=== PATIENT | male | born 1985 | race Asian ===

== ENCOUNTER 2019-04-14 12:14 | Emergency (ER) | payer MEDICAID, SELFPAY ==
[~2019-04-14] VITALS: Ht 182.9 cm; Wt 76.4 kg
[2019-04-14] MEDS ORDERED: PROPOFOL 10 MG/ML, 20ML ONE (13:57)
--- NOTE | 2019-04-14 13:58 | NUR ---
TASK RN: PT MOVED TO [facility] FROM [facility]. PT AWARE OF POC FOR PROCEDURAL SEDATION. PT SET UP FOR PROCEDURAL SEDATION. CONSENT SIGNED AND PLACED ON CHART. PIV INITIATED. MONITORS APPLIED.
[2019-04-14] MEDS ORDERED: PROPOFOL 10 MG/ML, 100ML IV ONE (14:00)
[2019-04-14] MEDS ORDERED: SODIUM CHLORIDE FLUSH 10ML SYR IVF ONE (14:00)
[2019-04-14] MEDS ORDERED: HYDROcodone/APAP 5/325 TABLET ONE (14:39)
--- NOTE | 2019-04-14 14:43 | NUR ---
TASK RN: TIME OUT FOR CLOSED REDUCTION LEFT SHOULDER PERFORMED AT 1410. PT MED NOTED AND SHOULDER REDUCED BY DR SORIANO. PT TOLLERATED WELL. SHOULDER IMMOBILIZER IN PLACE, DISTAL CSM+, VSS. PT C/O PAIN 07/02, MED NOTED FOR PAIN.
--- NOTE | 2019-04-14 14:49 | NUR ---
LATE ENTRY FOR 1400, SBAR RPT REC'D FROM [facility] EM[facility] AND ASSUMED PT CARE.
[2019-04-14] MEDS ORDERED: HYDROcodone/APAP 5/325 TABLET PO ONE (15:00)
[2019-04-14 15:27] VITALS: BP 131/82
--- NOTE | 2019-04-14 15:39 | NUR ---
Patient/Caregiver given discharge instructions and they have confirmed that they understand the instructions. Patient ambulatory with steady gait. Patient home with friend, Alma Rosa.
== END 2019-04-14 16:19 | disposition home or self-care (01) ==
LOC: ED 15:30
DX: S43.005A Unspecified dislocation of left shoulder joint, initial encounter (principal); X58.XXXA Exposure to other specified factors, initial encounter; Y93.89 Activity, other specified; Y92.488 Other paved roadways as the place of occurrence of the external cause; Y99.8 Other external cause status
CPT/HCPCS: 23650; 73030; 99285; J2704

== ENCOUNTER 2020-06-08 10:18 | Emergency (ER) | payer MEDICAID ==
[~2020-06-08] VITALS: Ht 182.9 cm; Wt 82.0 kg
--- NOTE | 2020-06-08 10:30 | NUR ---
PT BIB [facility]. PT STARTED EXPERIENCING N/V/ABD PAIN AND SEVERE CHILLS AND BODY ACHES AT 0800 THIS MORNING. PT STATED THAT HE HAS NEVER FELT LIKE THIS BEFORE AND THAT HIS "WHOLE BODY HURTS." PT DOES NOT HAVE FEVER. PT DENIES ANY DIARRHEA, SOB OR CP.
[2020-06-08] MEDS ORDERED: HALOPERIDOL 5 MG/ML ONE (10:39)
[2020-06-08] MEDS ORDERED: ONDANSETRON 2MG/ML, 2ML ONE (10:39)
[2020-06-08] MEDS ORDERED: DIPHENHYDRAMINE 50 MG/ML, 1ML ONE (10:39)
[2020-06-08] MEDS ORDERED: SODIUM CHLORIDE FLUSH 10ML SYR IVF ONE (11:00)
[2020-06-08] MEDS ORDERED: DIPHENHYDRAMINE 50 MG/ML, 1ML IVPush ONE (11:00)
[2020-06-08] MEDS ORDERED: ONDANSETRON 2MG/ML, 2ML IVPush ONE (11:00)
[2020-06-08] MEDS ORDERED: SODIUM CHLORIDE 0.9% 1,000ML IVBOLUS ONE (11:00)
[2020-06-08] MEDS ORDERED: HALOPERIDOL 5 MG/ML IV ONE (11:00)
[2020-06-08 11:03] LABS: BASOPHILS % (AUTO) 0 % (0-1); EOSINOPHILS % (AUTO) 1 % (1-7); LYMPHOCYTES % (AUTO) 12 % (22-44); MEAN PLATELET VOLUME 8.7 fL (7.4-10.4); MONOCYTES % (AUTO) 4 % (2-9); NEUTROPHILS % (AUTO) 82 % (42-75); PLATELET COUNT 225 x10^3/uL (130-400); RED BLOOD COUNT 4.89 x10^6/uL (4.38-5.82); RED CELL DISTRIBUTION WIDTH 12.8 % (9.4-14.8)
[2020-06-08 11:04] LABS: MD NO
[2020-06-08 11:14] LABS: CHLORIDE 110 mmol/L (98-107)
[2020-06-08 11:15] LABS: ALANINE AMINOTRANSFERASE 36 U/L (12-78); ALBUMIN 3.9 g/dL (3.4-5.0); ANION GAP 8 mmol/L (5-15); CALCIUM 8.6 mg/dL (8.5-10.1); CREATININE 1.03 mg/dL (0.7-1.3)
--- NOTE | 2020-06-08 11:15 | NUR ---
PT RESTING COMFORTABLY. PT NO LONGER VOMITING. PT DROWSY AFTER MEDICATIONS, PLACED ON 2L NC.
[2020-06-08 11:17] LABS: ALKALINE PHOSPHATASE 71 U/L (45-117); TOTAL PROTEIN 6.9 g/dL (6.4-8.2)
[2020-06-08 12:07] LABS: MICROSCOPIC NOT IND
--- NOTE | 2020-06-08 12:16 | NUR ---
PT GIVEN CUP OF WATER FOR PO CHALLENGE
--- NOTE | 2020-06-08 13:05 | NUR ---
PT STILL TOO DROWSY FOR DISCHARGE. PT TOLERATING BEING OFF OXYGEN.
[2020-06-08 13:06] VITALS: BP 132/95
--- NOTE | 2020-06-08 14:11 | NUR ---
DISCHARGE INSTRUCTIONS REVIEWED WITH PT. ALL QUESTIONS ANSWERED AT THIS TIME.
== END 2020-06-08 14:13 | disposition home or self-care (01) ==
LOC: ED 14:00
DX: R11.2 Nausea with vomiting, unspecified (principal); R10.84 Generalized abdominal pain; R94.31 Abnormal electrocardiogram [ECG] [EKG]
CPT/HCPCS: 36415; 80053; 81003; 83690; 85025; 93005; 96361; 96374; 96375; 99284; J1200; J1630; J7030